=== PATIENT | male | born 1950 | race Caucasian/White ===

== ENCOUNTER → 2018-12-14 | Day surgery (SDC) | payer BC ==
--- NOTE | 2018-12-08 10:15 | Diagnostic Imaging Report ---
Chest, 2 views, 12/08/2018. History: Preop, gallbladder surgery. Comparison: None available. Findings: The cardiomediastinal silhouette and pulmonary vasculature are within normal limits. The lungs are clear without evidence of consolidation or pleural effusion. There are no acute osseous or soft tissue abnormalities. Impression: No acute cardiopulmonary abnormality. Signed by: Moiz Garrett on 12/08/2018 10:12 AM
[~2018-12-14] MED LIST: ALFUZOSIN HCL10 MG PO; ASPIR 8181 MG PO; AVODART0.5 MG PO; BUPIVACAINE HCL 0.5% INJ 30 ML VIAL INJ ONE; CEFAZOLIN SOD 1 GM/NS 50ML 100 ML IV ONE; CLOPIDOGREL75 MG PO; DEXAMETHASONE SOD PHOS INJ 4 MG/ML VIAL ONE; FENTANYL CITRATE/PF 100MCG/2 ML INJ ONE; GLYCOPYRROLATE INJ 1MG/ 5 ML SYR ONE; LIDOCAINE HCL 2% LOCAL INJ 5 ML SDV VIAL INJ ONE; MIDAZOLAM HCL 2 MG/2 ML VIAL ONE; MONTELUKAST SOD10 MG PO; NEOSTIGMINE 5 MG/5ML SYR ONE; ONDANSETRON HCL INJ 2MG/ML 2ML 2 MG/ML VIAL ONE; PROPOFOL IV EMULSION 10 MG/ML 20 ML VIAL ONE; ROCURONIUM BROMIDE 10 MG/ML 5ML VIAL ONE; SEVOFLURANE INHAL SOLN 250 ML PEN BTL ONE; SIMVASTATIN40 MG PO
--- OUTSIDE RECORDS SUMMARY | 2018-12-14 06:17 | XMS REPORT | Clinical Summary ---
Author Author [facility] Organization [facility] Address Unknown Phone Unavailable Care Team Providers Care Proof Clerk Name Role Phone Yaakov Langford MD PCP Allergies No Known Allergies Medications End Date Status Medication Sig Dispensed Refills Start Date Active dutasteride (AVODART) 0.5 Take 0.5 mg 1 mg capsule by mouth 6 daily. Active fluocinolone acetonide Administer 0 oil 0.01 % drops into ears as needed. Active olopatadine 0.6 % into each 0 spray,non-aerosol nostril as needed. Active alfuzosin (UROXATRAL) 10 Take 10 mg by 0 mg 24 hr tablet mouth daily. Active aspirin (ECOTRIN) 81 MG Take 81 mg by 0 enteric coated tablet mouth daily. Active clopidogrel (PLAVIX) 75 TAKE ONE 90 tablet 3 mg tablet TABLET BY 8 MOUTH ONCE DAILY Active simvastatin (ZOCOR) 40 MG TAKE ONE 90 tablet 3 tabletIndications: TABLET BY 8 Coronary artery disease MOUTH ONCE involving [place] heart DAILY AT with angina pectoris, BEDTIME unspecified vessel or lesion type (HCC) Active montelukast (SINGULAIR) 1 10 mg tablet 9 03/05/2018 Discontinued (Reorder) clopidogrel (PLAVIX) 75 Take 1 tablet 90 tablet 3 mg tablet (75 mg total) 7 by mouth daily. 03/05/2018 Discontinued (Reorder) simvastatin (ZOCOR) 40 MG TAKE ONE 90 tablet 3 tabletIndications: TABLET BY 7 Coronary artery disease MOUTH ONCE involving [place] heart DAILY AT with angina pectoris, BEDTIME unspecified vessel or lesion type (HCC) Active Problems Problem Noted Date Stented coronary artery 10/21/2016 Coronary artery disease involving [place] coronary artery of [place] heart 09/28/2016 without angina pectoris Overview: Added automatically from request for surgery [id number] Coronary arteriosclerosis 09/08/2016 Coronary artery disease involving [place] heart with angina pectoris 03/13/2016 Chest pain 03/13/2016 Hyperlipidemia 03/13/2016 Encounters Care Team Description Date Type Specialty Ino Patton MD Coronary artery disease involving [place] coronary artery of [place] heart without angina pectoris (Primary Dx); Stented coronary artery 07/19/2018 Office Visit Cardiology Ino Patton MD Med Refill 03/05/2018 Refill Cardiology after 12/13/2017 Family History Medical History Relation Name Comments Diabetes Father Heart disease Father Diabetes Mother Heart disease Sister Relation Name Status Comments Father Mother Sister Social History Date Tobacco Use Types Packs/Day Years Used Never Smoker Smokeless Tobacco: Never Used Drinks/Week oz/Week Comments Alcohol Use Yes Sex Assigned at Date Recorded Not on file Industry Job Start Date Occupation Not on file Not on file Not on file Travel End Travel History Travel Start No recent travel history available. Last Filed Vital Signs Reading Time Taken Comments Vital Sign 143/78 07/19/2018 9:15 AM CDT Blood Pressure 73 07/19/2018 9:15 AM CDT Pulse - - Temperature - - Respiratory Rate - - Oxygen Saturation - - Inhaled Oxygen Concentration 90.3 kg (199 lb) 07/19/2018 9:15 AM CDT Weight 177.8 cm (5' 10") 07/19/2018 9:15 AM CDT Height 28.55 07/19/2018 9:15 AM CDT Body Mass Index Plan of Treatment Care Team Description Date Type Specialty Ino Patton MD [address] [facility] [address] [place] [id number] 07/18/2019 Office Visit Cardiology Health Maintenance Due Date Last Done Comments COLONOSCOPY SCREENING 2002 SHINGLES VACCINES (#1) 2002 65+ PNEUMOCOCCAL VACCINE 2017 (1 of 2 - PCV13) INFLUENZA VACCINE 11/24/2018 Implants Device Identifier Shelf Expiration Date Model / Serial / Lot Implanted Type Area Manufactur er 07/24/2017 [id number] / / [id number] Device Vasclr Clsr Vasoactive Cardiovasc N/A: N/A Intstnl Peptd 6fr Angio-Seal - ular [id number] Implants Implanted: 10/08/2016 at [facility] (Quantity not on file) [id number] / / Stent Catheter Synergy (Otw) 3.00mm Coronary N/A: N/A BSC X 24mm - [id number] Stents INTERVENTI Implanted: 10/08/2016 at [facility] (Quantity not on file) CARDIOLOGY [id number] / / Stent Catheter Synergy (Otw) 3.50mm Coronary N/A: N/A BSC X 16mm - [id number] Stents INTERVENTI Implanted: 10/08/2016 at [facility] (Quantity not on file) CARDIOLOGY [id number] / / Stent Catheter Synergy (Otw) 2.50mm Coronary N/A: N/A BSC X 8mm - [id number] Stents INTERVENTI Implanted: 10/08/2016 at [facility] (Quantity not on file) CARDIOLOGY [id number] / / Stent Catheter Synergy (Otw) 2.50mm Coronary N/A: N/A BSC X 8mm - [id number] Stents INTERVENTI Implanted: 10/08/2016 at [facility] (Quantity not on file) CARDIOLOGY Procedures Comments Procedure Name Priority Date/Time Associated Diagnosis ECG 12-LEAD Routine 07/19/2018 Coronary artery disease 8:19 AM CDT involving [place] coronary artery of [place] heart without angina pectoris after 12/13/2017 Results * ECG 12 lead (07/19/2018 8:19 AM CDT) Ventricular 65 [facility] rate Atrial rate 65 [facility] ME interval 236 [facility] QRSD interval 96 [facility] QT interval 392 [facility] QTC interval 407 [facility] P axis 1 52 [facility] QRS axis 1 59 [facility] T wave axis 22 [facility] EKG impression Sinus rhythm with 1st degree [facility] MUSE AV block-Otherwise normal ECG-In automated comparison with ECG of 08-OCT-2016 14:04,-No significant change was found- Specimen Narrative Performed At Performing Organization Address City/State/Zipcode Phone Number [facility] MUSE [address] [place] [address] after 12/13/2017 Insurance Type Payer Benefit Subscriber ID Effective Phone Address Plan / Dates Group PPO BCBS BCBS xxxxxxxxxxxx 2013- CHOICE Present PPO/ROM MICHAEL PPO Advance Directives For more information, please contact: [phone] 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
--- OUTSIDE RECORDS SUMMARY | 2018-12-14 06:17 | XMS REPORT ---
Author Author [facility] Address Unknown Phone Unavailable Care Team Providers Care Sports Physician Name Role Phone SLICK RAMÍREZ Unavailable Unavailable Problems This patient has no known problems. Allergies, Adverse Reactions, Alerts This patient has no known allergies or adverse reactions. Medications This patient has no known medications. Results Test Description Test Time Test Comments Text Results Atomic Results Result Comments CHEST 2 VIEWS 2018-12-08 10:11:00 [place] [address] Patient Name: TARA FELTON MR #: [id number] : 1950 Age/Sex: 68/M Req #: [id number] [facility] Physician: Ordered by: SLICK RAMÍREZ MD Report #: [id number] Location: OR Room/Bed: Procedure: [id number] DX/CHEST 2 VIEWS Exam Date: 12/08/18 Exam Time: 0941 REPORT STATUS: Signed Chest, 2 views, 12/08/2018. History: Preop, gallbladder surgery. Comparison: None available. Findings: The cardiomediastinal silhouette and pulmonary vasculature are within normal limits. The lungs are clear without evidence of consolidation or pleural effusion. There are no acute osseous or soft tissue abnormalities. Impression: No acute cardiopulmonary abnormality. Signed by: Colin Garrett on 12/08/2018 10:12 AM Dictated By: COLIN GARRETT MD 1012 Transcribed By: KEELY on 12/08/18 1012 COPY TO: SLICK RAMÍREZ MD
--- OUTSIDE RECORDS SUMMARY | 2018-12-14 06:17 | XMS REPORT | Continuity of Care Document ---
Author Author [employer] Address Unknown Phone Unavailable Care Team Providers Care Territory Sales Consultant Name Role Phone [employer] Unavailable Unavailable Problems Problem Status Onset Date Classification Date Reported Comments Source Shortness of breath 02/25/2018 09/07/2018 [facility] [place] Atherosclerotic heart disease of [place] coronary artery without angina pectoris 09/07/2018 [facility] [place] Allergic disposition (disorder) Resolved Problem 09/07/2018 [facility] [place] Backache (finding) Resolved Problem 09/07/2018 [facility] [place] Benign prostatic hyperplasia (disorder) Resolved Problem 09/07/2018 [facility] [place] Cataract (disorder) Resolved Problem 09/07/2018 [facility] [place] Congenital anomaly of coronary artery (disorder) Resolved Problem 09/07/2018 [facility] [place] Deviated nasal septum (disorder) Resolved Problem 09/07/2018 [facility] [place] External hemorrhoids (disorder) Resolved Problem 09/07/2018 [facility] [place] Gout (disorder) Resolved Problem 09/07/2018 [facility] [place] Peripheral vascular disease (disorder) Resolved Problem 09/07/2018 [facility] [place] Raised prostate specific antigen (finding) Resolved Problem 09/07/2018 [facility] [place] Tinnitus (finding) Resolved Problem 09/07/2018 [facility] [place] Undescended testicle (disorder) Resolved Problem 09/07/2018 [facility] [place] Urinary tract infectious disease (disorder) Resolved Problem 09/07/2018 [facility] [place] Venous varices (disorder) Resolved Problem 09/07/2018 [facility] [place] Medications No Data Provided for This Section Allergies, Adverse Reactions, Alerts No Known Medication Allergies Immunizations No Data Provided for This Section Results No Data Provided for This Section Pathology Reports No Data Provided for This Section Diagnostic Reports No Data Provided for This Section Consultation Notes No Data Provided for This Section Discharge Summaries No Data Provided for This Section History and Physicals No Data Provided for This Section Vital Signs No Data Provided for This Section Encounters Location Location Details Encounter Type Encounter Number Reason For Visit Attending Provider ADM Date DC Date Status Source [facility] [place] [facility] Di[facility] Services [id number] Yaakov Chenn 02/18/2018 02/19/2018 [facility] [place] [facility] [id number] Nadeem Bruce 07/19/2018 [facility] Procedures Procedure Code Date Perfomer Comments Source Complex uroflowmetry [id number] 06/04/2016 [facility] [place] Assessment and Plan No Data Provided for This Section Plan of Care No Data Provided for This Section Social History Social History Date Source Social History TypeResponse Smoking Status Unknown if ever smoked; Previous treatment: None; Ready to change: No; Concerns about tobacco use in household: No; Exposure to Tobacco Smoke None; Cigarette Smoking Last 365 Days No; Reg Smoking Cessation Counseling No entered on: 07/19/18 07/19/2018 [facility] [place] Family History No Data Provided for This Section Advance Directives No Data Provided for This Section Functional Status No Data Provided for This Section
--- OUTSIDE RECORDS SUMMARY | 2018-12-14 06:17 | XMS REPORT | Summary of Care ---
Author Author [facility] [place] Organization [facility] [place] Address Unknown Phone Unavailable Encounter HQ Jmaesntr_andreea(FIN) [id number] Date(s): 02/18/18 - 02/18/18 [facility] [place] [address] [place] [id number] [phone] Encounter Diagnosis Shortness of breath (Final) - 02/24/18 Atherosclerotic heart disease of [place] coronary artery without angina pectoris (Final) - Discharge Disposition: Home or Self Care Attending Physician: Yaakov Langford MD Referring Physician: Yaakov Langford MD Vital Signs No data available for this section Problem List Condition Effective Dates Status Health Status Informant Allergy(Confirmed) Resolved Backache(Confirmed) Resolved Benign prostatic Resolved hyperplasia with lower urinary tract symptoms(Confirmed) Cataract(Confirmed) Resolved Coronary artery Resolved anomaly(Confirmed) Deviated nasal Resolved septum(Confirmed) Hemorrhoids, Resolved external(Confirmed) Gout(Confirmed) Resolved Peripheral vascular Resolved disease(Confirmed) Elevated prostate Resolved specific antigen [PSA](Confirmed) Tinnitus(Confirmed) Resolved Undescended Resolved testicle(Confirmed) UTI (urinary tract Resolved infection)(Confirmed ) Asymptomatic Resolved varicose veins(Confirmed) Allergies, Adverse Reactions, Alerts No data available for this section Medications No data available for this section Results No data available for this section Immunizations No data available for this section Procedures Procedure Date Related Diagnosis Body Site Status Complex uroflowmetry 06/04/16 Completed Social History Social History Type Response Smoking Status Unknown if ever smoked; Previous treatment: None; Ready to change: No; Concerns about tobacco use in household: No; Exposure to Tobacco Smoke None; Cigarette Smoking Last 365 Days No; Reg Smoking Cessation Counseling No entered on: 07/19/18 Assessment and Plan No data available for this section
--- NOTE | 2018-12-14 07:10 | NUR ---
SPIRITUAL CARE - Pre-Surgery Assessment: Pt in bed. Pt's friend at bedside. Pt reported supportive attention from family and friends. Intervention: I provided pastoral presence, hospitality, and sympathetic listening. I acquainted pt with availability of book or script editor while hospitalized. Outcome: Pt expressed appreciation for visit. No need for follow up indicated at this time. [facility] Spiritual Care Department O: [phone] Pager: [phone] ([phone] number calling from)
--- NOTE | 2018-12-14 09:58 | Operative Report ---
DATE OF PROCEDURE: 12/14/2018 SURGEON: Roberto Edwards MD PREOPERATIVE DIAGNOSIS: Chronic cholecystitis. POSTOPERATIVE DIAGNOSIS: Chronic cholecystitis. PROCEDURE: Diagnostic laparoscopy, laparoscopic cholecystectomy. VISE HAND: None. ANESTHESIA: General endotracheal. INDICATIONS AND FINDINGS: The patient is a 68-year-old male with recurrent episodes of right upper quadrant abdominal pain. Workup revealed abnormal HIDA scan, low ejection fraction. Surgery based on the gallbladder was distended with some changes of cholesterolosis. Cystic duct was about 2 mm in diameter. Common bile duct was about 5 mm in diameter. Liver, stomach, and lower abdomen all appeared normal. TECHNIQUE: After adequate general endotracheal anesthesia with the patient in supine position, the abdomen was prepped and draped in sterile fashion with ChloraPrep solution. Skin in the umbilicus was infiltrated with 0.5% Marcaine. Incision was made in the umbilicus, abdominal wall was elevated and Veress needle was introduced. Pneumoperitoneum was then created. A 10 mm trocar and cannula was then passed through the umbilical wound. Laparoscopic camera was introduced. Initial laparoscopy revealed the gallbladder to be distended. Liver, stomach, and lower abdomen appeared normal. A 10 mm trocar and cannula was placed in the epigastrium and two 5 mm trocars and cannulas were placed in the right upper quadrant; these were placed under direct vision. Fundus of the gallbladder was grasped, retracted superiorly. Neck of the gallbladder was grasped and retracted laterally. Peritoneum over the neck of the gallbladder was incised. The gallbladder cystic duct junction was dissected free. Cystic artery was also dissected free. The neck of the gallbladder completely dissected free. Cystic artery was divided between hemoclips close to the gallbladder. Cystic duct was also divided between hemoclips with three clips, being left on the common bile duct side. The gallbladder was then dissected free from the liver using scissors and electrocautery. Once it was entirely free, it was placed into an Endopouch and brought through the epigastric cannula. There were no stones palpable. Gallbladder bed was inspected for hemostasis, which was seen to be adequate; it was irrigated with saline. All fluid aspirated, inspected once again for hemostasis, which was seen to be adequate. Instruments and cannulas were then removed. Pneumoperitoneum was evacuated. Wounds were then closed. Fascia in the umbilical and epigastrium closed with 0 Vicryl. Skin to all wounds closed with 4-0 Vicryl in subcuticular fashion. Dermabond and sterile dressing were applied to each wound. The patient tolerated the procedure well. Estimated blood loss was 5 mL. There were no complications. All counts were correct. The patient was taken to the recovery room in satisfactory condition. MD BRANDY Osborne/MIKE /[id number]
[2018-12-14 10:10] VITALS: BP 129/76
== END | disposition home or self-care (01) ==
LOC: OR 06:14
PROVIDERS: ATTEND Surgery
DX: K81.1 Chronic cholecystitis (principal); Z01.810 Encounter for preprocedural cardiovascular examination; Z01.811 Encounter for preprocedural respiratory examination; K21.9 Gastro-esophageal reflux disease without esophagitis; I25.10 Atherosclerotic heart disease of native coronary artery without angina pectoris; I25.2 Old myocardial infarction; Z84.89 Family history of other specified conditions; Z83.3 Family history of diabetes mellitus
CPT/HCPCS: 47562; 71046; 88304; 93005; J0690; J1100; J2001; J2250; J2405; J2704; J3010; J3490

== ENCOUNTER 2024-01-10 10:08 | Inpatient (IN) | payer MEDICARE ==
[2024-01-07 08:52] LABS: BASOPHILS % 0.3 % (0.0-1.0); EOSINOPHILS # (AUTO) 0.2 (0.0-0.4); EOSINOPHILS % 1.9 % (0.0-6.0); HEMATOCRIT 46.8 % (38.2-49.6); HEMOGLOBIN 14.8 g/dL (14.0-18.0); LYMPHOCYTES # (AUTO) 2.1 (1.0-3.2); MEAN CORPUSCULAR HEMOGLOBIN 29.2 pg (28-32); MEAN CORPUSCULAR HGB CONC 31.6 g/dL (31-35); MEAN CORPUSCULAR VOLUME 92.5 fL (81-99); MONOCYTES # (AUTO) 0.5 (0.2-0.8); MONOCYTES % 6.9 % (4.4-11.3); NEUTROPHILS # (AUTO) 4.9 (2.1-6.9); NEUTROPHILS % 63.6 % (38.7-80.0); PLATELET COUNT 214 x10e3/uL (140-360); RED BLOOD COUNT 5.06 x10e6/uL (4.3-5.7); RED CELL DISTRIBUTION WIDTH 13.4 % (11.7-14.4); WHITE BLOOD COUNT 7.71 x10e3/uL (4.8-10.8)
[2024-01-07 09:18] LABS: ALBUMIN 4.3 g/dL (3.5-5.0); ALBUMIN/GLOBULIN RATIO 1.3 (0.8-2.0); ANION GAP 13.2 mmol/L (8-16); BILIRUBIN,TOTAL 0.7 mg/dL (0.2-1.2); CALCIUM 9.7 mg/dL (8.4-10.2); CREATININE, SERUM 1.57 mg/dL (0.72-1.25); POTASSIUM 4.2 mmol/L (3.5-5.1); TOTAL PROTEIN 7.5 g/dL (6.5-8.1)
[~2024-01-10] VITALS: Ht 180.3 cm; Wt 92.5 kg
[2024-01-10] VITALS (21 sets, daily range): BP systolic 82–146; BP diastolic 47–98; PULSE 104–114; RESP 13–22; TEMP 94–98.3; O2SAT 88–100
[~2024-01-10 10:08] MED LIST changes: -BUPIVACAINE HCL 0.5% INJ 30 ML VIAL INJ ONE; -CEFAZOLIN SOD 1 GM/NS 50ML 100 ML IV ONE; -DEXAMETHASONE SOD PHOS INJ 4 MG/ML VIAL ONE; +ELDERBERRY350 MG; -FENTANYL CITRATE/PF 100MCG/2 ML INJ ONE; +FLONASE ALLERG9.9 ML INH; -GLYCOPYRROLATE INJ 1MG/ 5 ML SYR ONE; -LIDOCAINE HCL 2% LOCAL INJ 5 ML SDV VIAL INJ ONE; -MIDAZOLAM HCL 2 MG/2 ML VIAL ONE; +MULTI-VITAMIN1 EACH PO; -NEOSTIGMINE 5 MG/5ML SYR ONE; -ONDANSETRON HCL INJ 2MG/ML 2ML 2 MG/ML VIAL ONE; -PROPOFOL IV EMULSION 10 MG/ML 20 ML VIAL ONE; +PROTONIX20 MG PO; -ROCURONIUM BROMIDE 10 MG/ML 5ML VIAL ONE; -SEVOFLURANE INHAL SOLN 250 ML PEN BTL ONE; +VITAMIN C1000 MG PO; +VITAMIN D31250 MCG
[2024-01-10] MEDS: CEFAZOLIN SODIUM 2 GM ONE (12:13)
[2024-01-10] MEDS: LACTATED RINGER'S 1,000 ML ONE (12:14)
[2024-01-10] MEDS ORDERED: MANNITOL 25% 12.5GM/50ML 0 ML ONE (12:51)
[2024-01-10] MEDS ORDERED: SUGAMMADEX SODIUM 200 MG/2 ML VIAL IV ONE ×2 (12:58→17:47)
[2024-01-10] MEDS ORDERED: EPINEPHRINE HCL 1:1000 1ML 1 MG/ML AMP ONE (13:05)
[2024-01-10] MEDS ORDERED: MORPHINE SULFATE/PF 1 MG/1 ML 10ML VIAL ONE (13:05)
[2024-01-10] MEDS ORDERED: MANNITOL 25% 12.5GM/50ML 50 ML ONE (13:49)
[2024-01-10] MEDS ORDERED: ROCURONIUM BROMIDE 10 MG/ML 5ML VIAL IV ONE ×2 (16:34→17:47)
[2024-01-10] MEDS ORDERED: ONDANSETRON HCL INJ 2MG/ML 2ML 2 MG/ML VIAL ONE ×2 (16:34→17:47)
[2024-01-10] MEDS ORDERED: LIDOCAINE HCL 2% LOCAL INJ 5 ML SDV VIAL INJ ONE ×2 (16:34→17:47)
[2024-01-10] MEDS ORDERED: PROPOFOL IV EMULSION 10 MG/ML 20 ML VIAL ONE ×2 (16:34→17:47)
[2024-01-10] MEDS ORDERED: EPHEDRINE SULFATE INJ 50 MG/ML VIAL ONE ×2 (16:34→17:47)
[2024-01-10] MEDS ORDERED: MANNITOL 25% 12.5GM/50 ML VIAL ONE (16:34)
[2024-01-10] MEDS ORDERED: ACETAMINOPHEN 1000 MG/100 ML IV ONE ×2 (16:34→17:47)
[2024-01-10] MEDS ORDERED: DEXAMETHASONE SOD PHOS INJ 4 MG/ML SDV ONE ×2 (16:34→17:47)
[2024-01-10] MEDS ORDERED: SUCCINYLCHOLINE CHLORIDE 20 MG/ML 10ML VIAL ONE ×2 (16:34→17:47)
[2024-01-10] MEDS ORDERED: NALOXONE HCL INJ 0.4 MG/ML AMP IV PRN (16:45)
[2024-01-10] MEDS: SODIUM CHLORIDE 0.9% 250ML IRRIG IR SCH (16:45)
[2024-01-10] MEDS ORDERED: ONDANSETRON HCL INJ 2MG/ML 2ML 2 MG/ML VIAL IV PRN (16:45)
[2024-01-10] MEDS ORDERED: MORPHINE SULFATE 1 MG/ML 30ML PCA IV PRN (16:45)
[2024-01-10] MEDS ORDERED: DIPHENHYDRAMINE HCL INJ 50 MG/ML VIAL IM PRN (16:45)
[2024-01-10] MEDS ORDERED: MIDAZOLAM HCL 2 MG/2 ML VIAL ONE (17:05)
[2024-01-10] MEDS ORDERED: FENTANYL CITRATE/PF 100MCG/2 ML INJ ONE (17:05)
[2024-01-10 17:41] LABS: ANION GAP 13.3 mmol/L (8-16); CALCIUM 8.2 mg/dL (8.4-10.2); CREATININE, SERUM 1.47 mg/dL (0.72-1.25); POTASSIUM 4.3 mmol/L (3.5-5.1)
[2024-01-10 17:43] LABS: HEMATOCRIT 38.8 % (38.2-49.6); MEAN CORPUSCULAR HEMOGLOBIN 29.1 pg (28-32); MEAN CORPUSCULAR HGB CONC 30.9 g/dL (31-35); MEAN CORPUSCULAR VOLUME 94.2 fL (81-99); NEUTROPHILS % 86.2 % (38.7-80.0); PLATELET COUNT 169 x10e3/uL (140-360); RED BLOOD COUNT 4.12 x10e6/uL (4.3-5.7); RED CELL DISTRIBUTION WIDTH 13.2 % (11.7-14.4); WHITE BLOOD COUNT 9.98 x10e3/uL (4.8-10.8)
[2024-01-10 17:44] LABS: BASOPHILS % 0.2 % (0.0-1.0); EOSINOPHILS % 0.3 % (0.0-6.0); LYMPHOCYTES # (AUTO) 1.2 (1.0-3.2); LYMPHOCYTES % 11.7 % (18.0-39.1); MONOCYTES # (AUTO) 0.1 (0.2-0.8); MONOCYTES % 1.3 % (4.4-11.3); NEUTROPHILS # (AUTO) 8.6 (2.1-6.9)
[2024-01-10] MEDS ORDERED: PHENYLEPHRINE HCL 1% 10 MG/ML VIAL ONE (17:47)
[2024-01-10] MEDS ORDERED: SEVOFLURANE INHAL SOLN 250 ML PEN BTL ONE (17:47)
[2024-01-10] MEDS ORDERED: KETAMINE 50MG/5ML SYR ONE (18:11)
[2024-01-10 18:16] LABS: BASOPHILS % 0.2 % (0.0-1.0); EOSINOPHILS % 0.1 % (0.0-6.0); HEMATOCRIT 28.8 % (38.2-49.6); LYMPHOCYTES # (AUTO) 2.3 (1.0-3.2); LYMPHOCYTES % 11.1 % (18.0-39.1); MEAN CORPUSCULAR HEMOGLOBIN 29.4 pg (28-32); MEAN CORPUSCULAR HGB CONC 31.3 g/dL (31-35); MEAN CORPUSCULAR VOLUME 94.1 fL (81-99); MONOCYTES # (AUTO) 0.5 (0.2-0.8); MONOCYTES % 2.2 % (4.4-11.3); NEUTROPHILS # (AUTO) 17.7 (2.1-6.9); NEUTROPHILS % 85.8 % (38.7-80.0); PLATELET COUNT 195 x10e3/uL (140-360); RED BLOOD COUNT 3.06 x10e6/uL (4.3-5.7); RED CELL DISTRIBUTION WIDTH 13.2 % (11.7-14.4); WHITE BLOOD COUNT 20.59 x10e3/uL (4.8-10.8)
[2024-01-10] MEDS: HETASTARCH 6%/NACL INJ 500 ML IV ONE (19:26)
[2024-01-10] MEDS: HETASTARCH 6%/NACL INJ 500 ML ONE (19:26)
[2024-01-10] MEDS: MUPIROCIN 2% OINT 22 GM TUBE TOP SCH (19:56)
[2024-01-10] MEDS: D5.45%NS/KCL 20MEQ 1,000 ML IV SCH (19:58)
[2024-01-10] MEDS: SODIUM CHLORIDE 0.9% 250ML 250 ML IV ONE ×2 (20:14)
[2024-01-10 20:18] LABS: BASOPHILS % 0.1 % (0.0-1.0); EOSINOPHILS % 0.1 % (0.0-6.0); HEMATOCRIT 29.1 % (38.2-49.6); HEMOGLOBIN 9.2 g/dL (14.0-18.0); LYMPHOCYTES % 5.7 % (18.0-39.1); MEAN CORPUSCULAR HEMOGLOBIN 29.8 pg (28-32); MEAN CORPUSCULAR HGB CONC 31.6 g/dL (31-35); MEAN CORPUSCULAR VOLUME 94.2 fL (81-99); MONOCYTES # (AUTO) 0.7 (0.2-0.8); MONOCYTES % 3.7 % (4.4-11.3); NEUTROPHILS # (AUTO) 15.9 (2.1-6.9); NEUTROPHILS % 89.9 % (38.7-80.0); PLATELET COUNT 144 x10e3/uL (140-360); RED BLOOD COUNT 3.09 x10e6/uL (4.3-5.7); RED CELL DISTRIBUTION WIDTH 13.4 % (11.7-14.4); WHITE BLOOD COUNT 17.65 x10e3/uL (4.8-10.8)
[2024-01-11] VITALS (56 sets, daily range): BP systolic 96–147; BP diastolic 52–98; PULSE 92–110; RESP 11–24; TEMP 96.7–98.5; O2SAT 91–100
[2024-01-11] MEDS ORDERED: EYE LUBRICANT OPTH OINT 3.5GM TUBE OP PRN (00:15)
[2024-01-11 02:20] LABS: BASOPHILS % 0.1 % (0.0-1.0); HEMATOCRIT 29.3 % (38.2-49.6); HEMOGLOBIN 9.4 g/dL (14.0-18.0); LYMPHOCYTES # (AUTO) 0.5 (1.0-3.2); MEAN CORPUSCULAR HEMOGLOBIN 29.7 pg (28-32); MEAN CORPUSCULAR HGB CONC 32.1 g/dL (31-35); MEAN CORPUSCULAR VOLUME 92.4 fL (81-99); MONOCYTES # (AUTO) 1.1 (0.2-0.8); MONOCYTES % 8.7 % (4.4-11.3); NEUTROPHILS # (AUTO) 10.6 (2.1-6.9); PLATELET COUNT 136 x10e3/uL (140-360); RED BLOOD COUNT 3.17 x10e6/uL (4.3-5.7); RED CELL DISTRIBUTION WIDTH 13.9 % (11.7-14.4); WHITE BLOOD COUNT 12.22 x10e3/uL (4.8-10.8)
[2024-01-11 06:45] LABS: ALBUMIN 2.4 g/dL (3.5-5.0); ALBUMIN/GLOBULIN RATIO 1.4 (0.8-2.0); ANION GAP 9.7 mmol/L (8-16); BILIRUBIN,TOTAL 0.4 mg/dL (0.2-1.2); CALCIUM 7.2 mg/dL (8.4-10.2); CREATININE, SERUM 1.5 mg/dL (0.72-1.25); POTASSIUM 4.7 mmol/L (3.5-5.1); TOTAL PROTEIN 4.1 g/dL (6.5-8.1)
[2024-01-11 06:48] LABS: HEMATOCRIT 27.8 % (38.2-49.6); HEMOGLOBIN 8.9 g/dL (14.0-18.0); LYMPHOCYTES # (AUTO) 0.9 (1.0-3.2); LYMPHOCYTES % 9.8 % (18.0-39.1); MEAN CORPUSCULAR HEMOGLOBIN 29.6 pg (28-32); MEAN CORPUSCULAR VOLUME 92.4 fL (81-99); MONOCYTES % 10.9 % (4.4-11.3); NEUTROPHILS # (AUTO) 7.2 (2.1-6.9); NEUTROPHILS % 79.1 % (38.7-80.0); PLATELET COUNT 145 x10e3/uL (140-360); RED BLOOD COUNT 3.01 x10e6/uL (4.3-5.7); RED CELL DISTRIBUTION WIDTH 14.1 % (11.7-14.4); WHITE BLOOD COUNT 9.15 x10e3/uL (4.8-10.8)
[2024-01-11] MEDS: Morphine 4mg INJECTION 4 MG/ML INJ IV PRN (11:36)
[2024-01-11] MEDS: ONDANSETRON HCL INJ 2MG/ML 2ML 2 MG/ML VIAL IV PRN (11:37)
[2024-01-11] MEDS: DEXTROSE 5%/0.9% SOD CHL 1,000 ML IV SCH (11:43)
[2024-01-11] MEDS: ACETAMINOPHEN 1000 MG/100 ML IV PRN (13:34)
[2024-01-11] MEDS: SODIUM CHLORIDE 0.9% 250ML 250 ML IV ONE ×2 (18:51→20:12)
[2024-01-11 19:25] LABS: BASOPHILS % 0.2 % (0.0-1.0); EOSINOPHILS % 0.5 % (0.0-6.0); HEMATOCRIT 22.1 % (38.2-49.6); HEMOGLOBIN 7.2 g/dL (14.0-18.0); LYMPHOCYTES # (AUTO) 1.4 (1.0-3.2); LYMPHOCYTES % 22.3 % (18.0-39.1); MEAN CORPUSCULAR HGB CONC 32.6 g/dL (31-35); MEAN CORPUSCULAR VOLUME 92.1 fL (81-99); MONOCYTES # (AUTO) 0.7 (0.2-0.8); MONOCYTES % 11.4 % (4.4-11.3); NEUTROPHILS # (AUTO) 4.1 (2.1-6.9); NEUTROPHILS % 65.4 % (38.7-80.0); PLATELET COUNT 112 x10e3/uL (140-360); RED CELL DISTRIBUTION WIDTH 14.1 % (11.7-14.4); WHITE BLOOD COUNT 6.24 x10e3/uL (4.8-10.8)
[2024-01-11 19:48] LABS: ALBUMIN 2.6 g/dL (3.5-5.0); ALBUMIN/GLOBULIN RATIO 1.4 (0.8-2.0); ANION GAP 7.9 mmol/L (8-16); BILIRUBIN,TOTAL 0.6 mg/dL (0.2-1.2); CALCIUM 7.7 mg/dL (8.4-10.2); CREATININE, SERUM 1.39 mg/dL (0.72-1.25); POTASSIUM 3.9 mmol/L (3.5-5.1); TOTAL PROTEIN 4.4 g/dL (6.5-8.1)
[2024-01-11] MEDS: ACETAMINOPHEN 325 MG TAB PO STA (22:37)
[2024-01-11] MEDS: SODIUM CHLORIDE 0.9% 250ML 250 ML ONE (22:38)
[2024-01-12] VITALS (56 sets, daily range): BP systolic 105–172; BP diastolic 42–88; PULSE 82–103; RESP 11–26; TEMP 97.8–98; O2SAT 87–100
[2024-01-12 07:11] LABS: BASOPHILS % 0.3 % (0.0-1.0); EOSINOPHILS # (AUTO) 0.1 (0.0-0.4); EOSINOPHILS % 1.6 % (0.0-6.0); HEMATOCRIT 26.1 % (38.2-49.6); HEMOGLOBIN 8.5 g/dL (14.0-18.0); LYMPHOCYTES # (AUTO) 0.8 (1.0-3.2); LYMPHOCYTES % 11.5 % (18.0-39.1); MEAN CORPUSCULAR HEMOGLOBIN 30.1 pg (28-32); MEAN CORPUSCULAR HGB CONC 32.6 g/dL (31-35); MEAN CORPUSCULAR VOLUME 92.6 fL (81-99); MONOCYTES # (AUTO) 0.7 (0.2-0.8); MONOCYTES % 9.6 % (4.4-11.3); NEUTROPHILS # (AUTO) 5.3 (2.1-6.9); NEUTROPHILS % 76.6 % (38.7-80.0); PLATELET COUNT 127 x10e3/uL (140-360); RED BLOOD COUNT 2.82 x10e6/uL (4.3-5.7); RED CELL DISTRIBUTION WIDTH 14.4 % (11.7-14.4); WHITE BLOOD COUNT 6.86 x10e3/uL (4.8-10.8)
[2024-01-12 07:33] LABS: ANION GAP 8.8 mmol/L (8-16); CALCIUM 7.6 mg/dL (8.4-10.2); CREATININE, SERUM 1.35 mg/dL (0.72-1.25); POTASSIUM 3.8 mmol/L (3.5-5.1)
[2024-01-12] MEDS: ACETAMINOPHEN 1000 MG/100 ML IV PRN ×2 (10:34→15:51)
[2024-01-12] MEDS: SENNA-S TABLET PO SCH (16:07)
[2024-01-12 17:24] LABS: BASOPHILS % 0.1 % (0.0-1.0); EOSINOPHILS # (AUTO) 0.1 (0.0-0.4); HEMOGLOBIN 8.3 g/dL (14.0-18.0); LYMPHOCYTES % 14.9 % (18.0-39.1); MEAN CORPUSCULAR HEMOGLOBIN 29.5 pg (28-32); MEAN CORPUSCULAR HGB CONC 31.9 g/dL (31-35); MEAN CORPUSCULAR VOLUME 92.5 fL (81-99); MONOCYTES # (AUTO) 0.7 (0.2-0.8); MONOCYTES % 9.6 % (4.4-11.3); NEUTROPHILS # (AUTO) 5.1 (2.1-6.9); NEUTROPHILS % 73.1 % (38.7-80.0); PLATELET COUNT 120 x10e3/uL (140-360); RED BLOOD COUNT 2.81 x10e6/uL (4.3-5.7); RED CELL DISTRIBUTION WIDTH 14.4 % (11.7-14.4); WHITE BLOOD COUNT 6.99 x10e3/uL (4.8-10.8)
[2024-01-13] VITALS (46 sets, daily range): BP systolic 92–156; BP diastolic 45–121; PULSE 73–101; RESP 12–24; TEMP 97.7–98; O2SAT 91–100
[2024-01-13 06:56] LABS: EOSINOPHILS # (AUTO) 0.2 (0.0-0.4); EOSINOPHILS % 2.1 % (0.0-6.0); HEMATOCRIT 27.1 % (38.2-49.6); HEMOGLOBIN 8.7 g/dL (14.0-18.0); LYMPHOCYTES % 14.3 % (18.0-39.1); MEAN CORPUSCULAR HEMOGLOBIN 30.1 pg (28-32); MEAN CORPUSCULAR HGB CONC 32.1 g/dL (31-35); MEAN CORPUSCULAR VOLUME 93.8 fL (81-99); MONOCYTES # (AUTO) 0.5 (0.2-0.8); MONOCYTES % 7.7 % (4.4-11.3); NEUTROPHILS # (AUTO) 5.3 (2.1-6.9); NEUTROPHILS % 75.5 % (38.7-80.0); PLATELET COUNT 135 x10e3/uL (140-360); RED BLOOD COUNT 2.89 x10e6/uL (4.3-5.7); RED CELL DISTRIBUTION WIDTH 13.9 % (11.7-14.4); WHITE BLOOD COUNT 6.98 x10e3/uL (4.8-10.8)
[2024-01-13 07:20] LABS: ANION GAP 9.1 mmol/L (8-16); CALCIUM 7.5 mg/dL (8.4-10.2); CREATININE, SERUM 1.27 mg/dL (0.72-1.25); POTASSIUM 4.1 mmol/L (3.5-5.1)
[2024-01-13] MEDS: SODIUM CHLORIDE 0.9% 250ML 250 ML IV ONE (09:14)
[2024-01-13] MEDS: IRON SUCROSE 100 MG in SODIUM CHLORIDE 0.9% 100 ML IV SCH (09:14)
[2024-01-13] MEDS: BISACODYL 10 MG SUPP PR ONE ×2 (09:15→09:18)
[2024-01-13] MEDS: ACETAMINOPHEN/CODEINE 300MG - 30MG TAB PO PRN (12:01)
[2024-01-13] MEDS: FUROSEMIDE INJ 10 MG/ML 2 ML VIAL IV PRN (21:27)
[2024-01-14] VITALS (11 sets, daily range): BP systolic 129–162; BP diastolic 63–85; PULSE 73–99; RESP 17–20; TEMP 97.6–99.3; O2SAT 96–100
[2024-01-14 05:35] LABS: BASOPHILS % 0.1 % (0.0-1.0); EOSINOPHILS # (AUTO) 0.2 (0.0-0.4); EOSINOPHILS % 2.7 % (0.0-6.0); HEMOGLOBIN 10.9 g/dL (14.0-18.0); LYMPHOCYTES # (AUTO) 0.9 (1.0-3.2); LYMPHOCYTES % 12.9 % (18.0-39.1); MEAN CORPUSCULAR HEMOGLOBIN 29.5 pg (28-32); MEAN CORPUSCULAR HGB CONC 32.1 g/dL (31-35); MEAN CORPUSCULAR VOLUME 92.1 fL (81-99); MONOCYTES # (AUTO) 0.7 (0.2-0.8); MONOCYTES % 10.1 % (4.4-11.3); NEUTROPHILS % 73.9 % (38.7-80.0); PLATELET COUNT 151 x10e3/uL (140-360); RED BLOOD COUNT 3.69 x10e6/uL (4.3-5.7); RED CELL DISTRIBUTION WIDTH 14.1 % (11.7-14.4); WHITE BLOOD COUNT 6.75 x10e3/uL (4.8-10.8)
[2024-01-14 05:51] LABS: ANION GAP 11.5 mmol/L (8-16); CALCIUM 8.3 mg/dL (8.4-10.2); CREATININE, SERUM 1.43 mg/dL (0.72-1.25); POTASSIUM 3.5 mmol/L (3.5-5.1)
[2024-01-14 17:04] LABS: CLARITY,URINE CLEAR (CLEAR); COLOR,URINE YELLOW (YELLOW); LEUKOCYTE ESTERASE ,URINE NEGATIVE (NEGATIVE); NITRITE,URINE NEGATIVE (NEGATIVE); PH,URINE 7 (5 - 7)
[2024-01-14 17:05] LABS: BACTERIA,URINE RARE /HPF; BILIRUBIN,URINE NEGATIVE (NEGATIVE); GLUCOSE, URINE NEGATIVE (NEGATIVE); KETONES,URINE NEGATIVE (NEGATIVE); PROTEIN,URINE DIPSTICK 1+ (NEGATIVE); URINE UROBILINOGEN 0.2 mg/dL (0.2 - 1); WBC,URINE (MAN) 0-5 /HPF (0-5)
[2024-01-14] MEDS: ACETAMINOPHEN 1000 MG/100 ML IV PRN (23:21)
[2024-01-15] VITALS (10 sets, daily range): BP systolic 132–158; BP diastolic 63–96; PULSE 71–82; RESP 14–20; TEMP 97.7–98.7; O2SAT 96–99
[2024-01-15 06:53] LABS: BASOPHILS % 0.3 % (0.0-1.0); EOSINOPHILS # (AUTO) 0.3 (0.0-0.4); EOSINOPHILS % 4.9 % (0.0-6.0); HEMATOCRIT 34.3 % (38.2-49.6); LYMPHOCYTES # (AUTO) 1.4 (1.0-3.2); LYMPHOCYTES % 21.8 % (18.0-39.1); MEAN CORPUSCULAR HEMOGLOBIN 29.6 pg (28-32); MEAN CORPUSCULAR HGB CONC 32.1 g/dL (31-35); MEAN CORPUSCULAR VOLUME 92.2 fL (81-99); MONOCYTES # (AUTO) 0.8 (0.2-0.8); MONOCYTES % 11.8 % (4.4-11.3); NEUTROPHILS # (AUTO) 3.9 (2.1-6.9); NEUTROPHILS % 60.9 % (38.7-80.0); PLATELET COUNT 166 x10e3/uL (140-360); RED BLOOD COUNT 3.72 x10e6/uL (4.3-5.7); WHITE BLOOD COUNT 6.33 x10e3/uL (4.8-10.8)
[2024-01-15 07:06] LABS: ANION GAP 9.8 mmol/L (8-16); CALCIUM 8.4 mg/dL (8.4-10.2); CREATININE, SERUM 1.26 mg/dL (0.72-1.25); POTASSIUM 3.8 mmol/L (3.5-5.1)
[2024-01-15] MEDS: BISACODYL 10 MG SUPP PR PRN (16:38)
[2024-01-16] VITALS (10 sets, daily range): BP systolic 136–168; BP diastolic 75–95; PULSE 65–80; RESP 17–18; TEMP 97.8–99.4; O2SAT 96–100
[2024-01-16] MEDS ORDERED: BISACODYL 10 MG SUPP PR PRN (09:30)
[2024-01-16] MEDS ORDERED: ACETAMINOPHEN 325 MG TAB PO PRN (09:30)
[2024-01-16] MEDS: POLYETHYLENE GLYCOL 3350 17 GM PACK PO SCH (09:55)
[2024-01-16] MEDS: BISACODYL 10 MG SUPP PR ONE (09:55)
[2024-01-16] MEDS: Morphine 4mg INJECTION 4 MG/ML INJ IV PRN (09:56)
[2024-01-17] VITALS (9 sets, daily range): BP systolic 105–168; BP diastolic 70–88; PULSE 69–79; RESP 16–18; TEMP 98.2–99.1; O2SAT 95–100
[2024-01-17 05:28] LABS: BASOPHILS % 0.1 % (0.0-1.0); EOSINOPHILS # (AUTO) 0.3 (0.0-0.4); EOSINOPHILS % 3.5 % (0.0-6.0); HEMATOCRIT 36.2 % (38.2-49.6); HEMOGLOBIN 11.3 g/dL (14.0-18.0); LYMPHOCYTES # (AUTO) 1.3 (1.0-3.2); LYMPHOCYTES % 16.4 % (18.0-39.1); MEAN CORPUSCULAR HEMOGLOBIN 29.4 pg (28-32); MEAN CORPUSCULAR HGB CONC 31.2 g/dL (31-35); MEAN CORPUSCULAR VOLUME 94.3 fL (81-99); MONOCYTES # (AUTO) 0.8 (0.2-0.8); MONOCYTES % 9.5 % (4.4-11.3); NEUTROPHILS # (AUTO) 5.7 (2.1-6.9); PLATELET COUNT 190 x10e3/uL (140-360); RED BLOOD COUNT 3.84 x10e6/uL (4.3-5.7); RED CELL DISTRIBUTION WIDTH 13.8 % (11.7-14.4); WHITE BLOOD COUNT 8.09 x10e3/uL (4.8-10.8)
[2024-01-17 06:05] LABS: ANION GAP 10.8 mmol/L (8-16); CALCIUM 8.7 mg/dL (8.4-10.2); CREATININE, SERUM 1.15 mg/dL (0.72-1.25); POTASSIUM 3.8 mmol/L (3.5-5.1)
[2024-01-17] MEDS ORDERED: HYDRALAZINE HCL 25 MG TAB PO PRN (07:30)
[2024-01-17] MEDS: AMLODIPINE BESYLATE 10 MG TAB PO SCH (08:10)
[2024-01-17] MEDS: DUTASTERIDE 0.5 MG CAP PO SCH (08:12)
[2024-01-17] MEDS ORDERED: SIMVASTATIN 20 MG TAB PO SCH (21:00)
[2024-01-17] MEDS ORDERED: SIMVASTATIN 40 MG TAB PO SCH (21:00)
[2024-01-17] MEDS ORDERED: MONTELUKAST SODIUM 10 MG TAB PO SCH (21:00)
== END 2024-01-17 17:44 | disposition home or self-care (01) | DRG 657 ==
LOC: OR 10:08 → PACU V 14:45 → ICU 18:54 → IMCU 01-13 20:47 → ERHOLD 01-14 16:32 → IMCU 01-14 16:32
PROVIDERS: ADMIT Internal Medicine; ATTEND Internal Medicine
PROC: 30233N1 Transfusion of Nonautologous Red Blood Cells into Peripheral Vein, Percutaneous Approach (ICD-10-PCS; 2024-01-10)
PROC: 0TB10ZZ Excision of Left Kidney, Open Approach (ICD-10-PCS; principal; 2024-01-10 13:04)
PROC: 30233K1 Transfusion of Nonautologous Frozen Plasma into Peripheral Vein, Percutaneous Approach (ICD-10-PCS; 2024-01-11)
PROC: 30233R1 Transfusion of Nonautologous Platelets into Peripheral Vein, Percutaneous Approach (ICD-10-PCS; 2024-01-11)
DX: C64.2 Malignant neoplasm of left kidney, except renal pelvis (principal); D62 Acute posthemorrhagic anemia; E87.1 Hypo-osmolality and hyponatremia; I95.81 Postprocedural hypotension; E27.8 Other specified disorders of adrenal gland; E83.51 Hypocalcemia; E11.22 Type 2 diabetes mellitus with diabetic chronic kidney disease; I12.9 Hypertensive chronic kidney disease with stage 1 through stage 4 chronic kidney disease, or unspecified chronic kidney disease; N18.30 Chronic kidney disease, stage 3 unspecified; I25.10 Atherosclerotic heart disease of native coronary artery without angina pectoris; I25.2 Old myocardial infarction; Z95.5 Presence of coronary angioplasty implant and graft; E78.5 Hyperlipidemia, unspecified; R31.9 Hematuria, unspecified; K21.9 Gastro-esophageal reflux disease without esophagitis; N40.0 Benign prostatic hyperplasia without lower urinary tract symptoms; E66.9 Obesity, unspecified; Z68.28 Body mass index [BMI] 28.0-28.9, adult; Z90.49 Acquired absence of other specified parts of digestive tract; Z79.82 Long term (current) use of aspirin; Z79.02 Long term (current) use of antithrombotics/antiplatelets
CPT/HCPCS: 36415; 71045; 80048; 80053; 81001; 83735; 85025; 86850; 86900; 86920; 87086; 88304; 88305; 88307; 88311; 88329; 93005; 94799; 99252; J0171; J0330; J0690; J1100; J1756; J1940; J2001; J2150; J2250; J2270; J2371; J2405; J2470; J7042; J7050; P9016; P9017; P9034

== ENCOUNTER → 2024-03-28 | Outpatient (REF) | payer MEDICARE | LOC: US 13:48 | PROVIDERS: ATTEND Urology | DX: C64.2 Malignant neoplasm of left kidney, except renal pelvis (principal); N18.9 Chronic kidney disease, unspecified | CPT/HCPCS: 71046; 76770; 76857 ==

== ENCOUNTER → 2024-06-15 | Outpatient (REF) | payer MEDICARE | LOC: US 11:29 | PROVIDERS: ATTEND Urology | DX: N50.0 Atrophy of testis (principal) | CPT/HCPCS: 76870; 93976 ==

== ENCOUNTER 2024-08-02 06:02 | Inpatient (IN) | payer MEDICARE ==
[~2024-08-02] VITALS: Ht 177.8 cm; Wt 88.9 kg
[2024-08-02 06:40] LABS: BASOPHILS % 0.3 % (0.0-1.0); EOSINOPHILS # (AUTO) 0.2 (0.0-0.4); EOSINOPHILS % 3.3 % (0.0-6.0); HEMATOCRIT 39.8 % (38.2-49.6); LYMPHOCYTES # (AUTO) 1.8 (1.0-3.2); LYMPHOCYTES % 26.1 % (18.0-39.1); MEAN CORPUSCULAR HEMOGLOBIN 30.1 pg (28-32); MEAN CORPUSCULAR HGB CONC 32.7 g/dL (31-35); MEAN CORPUSCULAR VOLUME 92.1 fL (81-99); MONOCYTES # (AUTO) 0.6 (0.2-0.8); MONOCYTES % 9.2 % (4.4-11.3); NEUTROPHILS # (AUTO) 4.2 (2.1-6.9); NEUTROPHILS % 60.7 % (38.7-80.0); PLATELET COUNT 162 x10e3/uL (140-360); RED BLOOD COUNT 4.32 x10e6/uL (4.3-5.7); RED CELL DISTRIBUTION WIDTH 13.7 % (11.7-14.4); WHITE BLOOD COUNT 6.94 x10e3/uL (4.8-10.8)
[2024-08-02] MEDS: SODIUM CHLORIDE 0.9% 1000ML 1,000 ML ONE (06:58)
[2024-08-02 07:03] LABS: ANION GAP 12.1 mmol/L (8-16); CREATININE, SERUM 1.55 mg/dL (0.72-1.25); POTASSIUM 4.1 mmol/L (3.5-5.1)
[2024-08-02] MEDS ORDERED: PROPOFOL IV EMULSION 10 MG/ML 20 ML VIAL ONE (09:11)
[2024-08-02] MEDS ORDERED: SEVOFLURANE INHAL SOLN 250 ML PEN BTL ONE (09:11)
[2024-08-02] MEDS ORDERED: ROCURONIUM BROMIDE 1 ML IV ONE (09:12)
[2024-08-02] MEDS ORDERED: ONDANSETRON HCL INJ 2MG/ML 2ML 2 MG/ML VIAL ONE (09:12)
[2024-08-02] MEDS ORDERED: DEXAMETHASONE SOD PHOS INJ 4 MG/ML SDV ONE (09:12)
[2024-08-02] MEDS ORDERED: LIDOCAINE HCL 2% LOCAL INJ 5 ML SDV VIAL INJ ONE (09:12)
[2024-08-02] MEDS ORDERED: SUCCINYLCHOLINE CHLORIDE 20 MG/ML 10ML VIAL ONE (09:12)
[2024-08-02] MEDS ORDERED: FENTANYL CITRATE/PF 100MCG/2 ML INJ ONE (09:13)
[2024-08-02] MEDS ORDERED: METOCLOPRAMIDE HCL 10 MG/2ML VIAL ONE (11:18)
[2024-08-02] MEDS ORDERED: ACETAMINOPHEN 1000 MG/100 ML 100 ML IV ONE (11:26)
[2024-08-02] MEDS ORDERED: EPHEDRINE SULFATE INJ 50 MG/ML VIAL ONE (11:41)
[2024-08-02] MEDS ORDERED: SUGAMMADEX SODIUM 200 MG/2 ML VIAL IV ONE (12:20)
[2024-08-02] MEDS ORDERED: ONDANSETRON HCL INJ 2MG/ML 2ML 2 MG/ML VIAL IV PRN (12:45)
[2024-08-02] MEDS ORDERED: DIPHENHYDRAMINE HCL 25 MG CAP PO PRN (12:45)
[2024-08-02] MEDS: FENTANYL CITRATE/PF 100MCG/2 ML INJ ONE (12:50)
[2024-08-02 13:20] LABS: BASOPHILS % 0.2 % (0.0-1.0); EOSINOPHILS # (AUTO) 0.1 (0.0-0.4); EOSINOPHILS % 0.9 % (0.0-6.0); HEMATOCRIT 32.4 % (38.2-49.6); HEMOGLOBIN 10.3 g/dL (14.0-18.0); LYMPHOCYTES # (AUTO) 1.7 (1.0-3.2); LYMPHOCYTES % 14.2 % (18.0-39.1); MEAN CORPUSCULAR HEMOGLOBIN 29.9 pg (28-32); MEAN CORPUSCULAR HGB CONC 31.8 g/dL (31-35); MEAN CORPUSCULAR VOLUME 94.2 fL (81-99); MONOCYTES # (AUTO) 0.4 (0.2-0.8); NEUTROPHILS # (AUTO) 9.9 (2.1-6.9); NEUTROPHILS % 81.3 % (38.7-80.0); PLATELET COUNT 137 x10e3/uL (140-360); RED BLOOD COUNT 3.44 x10e6/uL (4.3-5.7); RED CELL DISTRIBUTION WIDTH 13.7 % (11.7-14.4); WHITE BLOOD COUNT 12.15 x10e3/uL (4.8-10.8)
[2024-08-02 13:42] VITALS: BP 134/71; PULSE 90; RESP 18; TEMP 97.5; O2SAT 97
[2024-08-02 13:55] LABS: CREATININE, SERUM 1.02 mg/dL (0.72-1.25)
[2024-08-02 14:14] LABS: CALCIUM 6.8 mg/dL (8.4-10.2)
[2024-08-02] MEDS: SODIUM CHLORIDE 0.9% 1000ML 1,000 ML IV SCH (14:25)
[2024-08-02] MEDS: ACETAMINOPHEN/CODEINE 300MG - 30MG TAB PO PRN (14:26)
[2024-08-02] MEDS: GENTAMICIN 80MG/NS 100 ML 200 ML IV ONE (14:26)
[2024-08-02] MEDS: SENNA-S TABLET PO SCH (17:49)
[2024-08-02 18:01] VITALS: BP 134/71; PULSE 90; RESP 18; TEMP 97.5; O2SAT 97
[2024-08-02 18:40] VITALS: BP 134/71; PULSE 90; RESP 18; TEMP 97.5; O2SAT 97
[2024-08-02] MEDS: ACETAMINOPHEN 1000 MG/100 ML IV PRN (18:45)
[2024-08-02] MEDS: PHENAZOPYRIDINE HCL 100 MG TAB PO PRN (19:08)
[2024-08-02] MEDS: CALCIUM CARBONATE 500 MG CHEWABLE TABS PO SCH (19:40)
[2024-08-02 19:48] VITALS: BP 101/62; PULSE 71; PULSE 85; RESP 16; RESP 18; TEMP 97.9; O2SAT 96; O2SAT 98
[2024-08-02 21:28] VITALS: BP 101/62; PULSE 71; RESP 16; TEMP 97.9; O2SAT 96
[2024-08-02 23:35] VITALS: BP 119/72; PULSE 76; RESP 18; TEMP 98.4; O2SAT 99
[2024-08-03] VITALS (10 sets, daily range): BP systolic 120–142; BP diastolic 63–72; PULSE 69–78; RESP 17–20; TEMP 97.5–98.8; O2SAT 95–100
[2024-08-03 05:35] LABS: BASOPHILS % 0.1 % (0.0-1.0); EOSINOPHILS % 0.2 % (0.0-6.0); HEMATOCRIT 25.2 % (38.2-49.6); HEMOGLOBIN 8.1 g/dL (14.0-18.0); LYMPHOCYTES # (AUTO) 1.2 (1.0-3.2); LYMPHOCYTES % 12.1 % (18.0-39.1); MEAN CORPUSCULAR HEMOGLOBIN 30.1 pg (28-32); MEAN CORPUSCULAR HGB CONC 32.1 g/dL (31-35); MEAN CORPUSCULAR VOLUME 93.7 fL (81-99); MONOCYTES # (AUTO) 0.7 (0.2-0.8); NEUTROPHILS # (AUTO) 8.1 (2.1-6.9); NEUTROPHILS % 80.3 % (38.7-80.0); PLATELET COUNT 130 x10e3/uL (140-360); RED BLOOD COUNT 2.69 x10e6/uL (4.3-5.7); RED CELL DISTRIBUTION WIDTH 14.2 % (11.7-14.4); WHITE BLOOD COUNT 10.12 x10e3/uL (4.8-10.8)
[2024-08-03 06:09] LABS: ANION GAP 9.2 mmol/L (8-16); CALCIUM 7.3 mg/dL (8.4-10.2); CREATININE, SERUM 1.15 mg/dL (0.72-1.25); POTASSIUM 4.2 mmol/L (3.5-5.1)
[2024-08-03] MEDS ORDERED: ALBUTEROL/IPRATROPIUM 3 ML NEB NEB PRN (11:00)
[2024-08-03] MEDS ORDERED: METOPROLOL TARTRATE INJ 1 MG/ML VIAL IV PRN (11:00)
[2024-08-03] MEDS ORDERED: SIMETHICONE 80 MG CHEW PO PRN (11:00)
[2024-08-03] MEDS ORDERED: MELATONIN 3 MG TAB PO PRN (11:00)
[2024-08-03] MEDS: ACETAMINOPHEN 1000 MG/100 ML IV PRN (14:47)
[2024-08-03] MEDS: SIMVASTATIN 40 MG TAB PO SCH (20:58)
[2024-08-04] VITALS (8 sets, daily range): BP systolic 126–145; BP diastolic 66–78; PULSE 65–74; RESP 18–20; TEMP 97.5–98.2; O2SAT 94–100
[2024-08-04 05:17] LABS: BASOPHILS % 0.2 % (0.0-1.0); EOSINOPHILS # (AUTO) 0.3 (0.0-0.4); EOSINOPHILS % 4.3 % (0.0-6.0); HEMATOCRIT 24.4 % (38.2-49.6); LYMPHOCYTES # (AUTO) 1.7 (1.0-3.2); LYMPHOCYTES % 26.2 % (18.0-39.1); MEAN CORPUSCULAR HEMOGLOBIN 29.6 pg (28-32); MEAN CORPUSCULAR HGB CONC 31.6 g/dL (31-35); MEAN CORPUSCULAR VOLUME 93.8 fL (81-99); MONOCYTES # (AUTO) 0.5 (0.2-0.8); MONOCYTES % 7.6 % (4.4-11.3); NEUTROPHILS % 61.4 % (38.7-80.0); PLATELET COUNT 131 x10e3/uL (140-360); RED CELL DISTRIBUTION WIDTH 14.3 % (11.7-14.4); WHITE BLOOD COUNT 6.56 x10e3/uL (4.8-10.8)
[2024-08-04 05:19] LABS: HEMOGLOBIN 7.7 g/dL (14.0-18.0)
[2024-08-04 05:42] LABS: ANION GAP 10.4 mmol/L (8-16); CALCIUM 8.3 mg/dL (8.4-10.2); CREATININE, SERUM 1.22 mg/dL (0.72-1.25); POTASSIUM 4.4 mmol/L (3.5-5.1)
[2024-08-04 06:32] LABS: FERRITIN 160.01 ng/mL (21.81-274.66)
[2024-08-04] MEDS: PANTOPRAZOLE SOD 40 MG TABEC PO SCH (08:50)
[2024-08-04] MEDS: MONTELUKAST SODIUM 10 MG TAB PO SCH (08:52)
[2024-08-04] MEDS: ACETAMINOPHEN 325 MG TAB PO PRN (08:52)
[2024-08-05] VITALS (8 sets, daily range): BP systolic 127–158; BP diastolic 69–79; PULSE 64–76; RESP 18–20; TEMP 97.5–98.2; O2SAT 96–100
[2024-08-05 06:15] LABS: BASOPHILS % 0.3 % (0.0-1.0); EOSINOPHILS # (AUTO) 0.3 (0.0-0.4); EOSINOPHILS % 4.3 % (0.0-6.0); HEMATOCRIT 25.3 % (38.2-49.6); HEMOGLOBIN 7.9 g/dL (14.0-18.0); LYMPHOCYTES # (AUTO) 1.4 (1.0-3.2); LYMPHOCYTES % 21.9 % (18.0-39.1); MEAN CORPUSCULAR HEMOGLOBIN 29.5 pg (28-32); MEAN CORPUSCULAR HGB CONC 31.2 g/dL (31-35); MEAN CORPUSCULAR VOLUME 94.4 fL (81-99); MONOCYTES # (AUTO) 0.5 (0.2-0.8); MONOCYTES % 8.5 % (4.4-11.3); NEUTROPHILS % 64.2 % (38.7-80.0); PLATELET COUNT 147 x10e3/uL (140-360); RED BLOOD COUNT 2.68 x10e6/uL (4.3-5.7); RED CELL DISTRIBUTION WIDTH 13.9 % (11.7-14.4); WHITE BLOOD COUNT 6.25 x10e3/uL (4.8-10.8)
[2024-08-05 06:45] LABS: ANION GAP 11.3 mmol/L (8-16); CALCIUM 8.7 mg/dL (8.4-10.2); CREATININE, SERUM 1.27 mg/dL (0.72-1.25); POTASSIUM 4.3 mmol/L (3.5-5.1)
[2024-08-05] MEDS: LACTOBACILLUS ACIDOPHILUS CAPSULE PO SCH (09:38)
[2024-08-05] MEDS: MAGNESIUM HYDROXIDE 30 ML UDC PO ONE (09:38)
[2024-08-05] MEDS: MAGNESIUM HYDROXIDE 30 ML UDC PO PRN (15:27)
[2024-08-06] VITALS (8 sets, daily range): BP systolic 127–166; BP diastolic 75–82; PULSE 64–75; RESP 18–20; TEMP 97.6–98.5; O2SAT 93–100
[2024-08-06 05:38] LABS: BASOPHILS % 0.3 % (0.0-1.0); EOSINOPHILS # (AUTO) 0.2 (0.0-0.4); EOSINOPHILS % 3.1 % (0.0-6.0); HEMOGLOBIN 8.1 g/dL (14.0-18.0); LYMPHOCYTES # (AUTO) 1.8 (1.0-3.2); LYMPHOCYTES % 25.9 % (18.0-39.1); MEAN CORPUSCULAR HEMOGLOBIN 30.1 pg (28-32); MEAN CORPUSCULAR HGB CONC 32.4 g/dL (31-35); MEAN CORPUSCULAR VOLUME 92.9 fL (81-99); MONOCYTES # (AUTO) 0.5 (0.2-0.8); MONOCYTES % 7.9 % (4.4-11.3); NEUTROPHILS # (AUTO) 4.2 (2.1-6.9); NEUTROPHILS % 62.4 % (38.7-80.0); PLATELET COUNT 146 x10e3/uL (140-360); RED BLOOD COUNT 2.69 x10e6/uL (4.3-5.7); RED CELL DISTRIBUTION WIDTH 13.9 % (11.7-14.4)
[2024-08-06 06:03] LABS: CALCIUM 8.6 mg/dL (8.4-10.2); CREATININE, SERUM 1.3 mg/dL (0.72-1.25)
[2024-08-06] MEDS ORDERED: SENNA S TABLET1 EACH PO (08:43)
[2024-08-07 04:00] VITALS: BP 138/90; PULSE 70; RESP 18; TEMP 97.6; O2SAT 99
[2024-08-07 06:20] VITALS: PULSE 79; RESP 20; O2SAT 98
[2024-08-07] MEDS ORDERED: BISACODYL 10 MG SUPP PR PRN (08:00)
[2024-08-07] MEDS ORDERED: MAGNESIUM HYDROXIDE 30 ML UDC PO PRN (08:30)
[2024-08-07] MEDS ORDERED: DOCUSATE SODIUM 100 MG CAP PO SCH (09:00)
[2024-08-07] MEDS: BISACODYL 10 MG SUPP PR ONE (09:44)
[2024-08-07] MEDS: BISACODYL 5 MG TAB EC PO ONE (09:46)
[2024-08-07 09:50] VITALS: BP 145/81; PULSE 60; RESP 17; TEMP 97.5; O2SAT 98
[2024-08-07 10:06] VITALS: BP 145/81; PULSE 60; RESP 17; TEMP 97.5; O2SAT 100
[2024-08-07 13:00] VITALS: BP 142/79; PULSE 73; RESP 18; TEMP 98.4; O2SAT 100
[2024-08-07] MEDS: MAGNESIUM HYDROXIDE 30 ML UDC PO ONE (14:49)
[2024-08-07 16:00] VITALS: BP 149/86; PULSE 75; RESP 17; TEMP 97.9; O2SAT 98
[2024-08-07] MEDS ORDERED: MONTELUKAST SODIUM 10 MG TAB PO SCH (20:00)
== END 2024-08-07 18:25 | disposition home or self-care (01) | DRG 713 ==
LOC: OR 06:02 → PACU V 12:39 → MED/SURG2 13:25
PROVIDERS: ADMIT Urology; ATTEND Urology
PROC: 0VB08ZZ Excision of Prostate, Via Natural or Artificial Opening Endoscopic (ICD-10-PCS; principal; 2024-08-02 11:15)
PROC: BT141ZZ Fluoroscopy of Kidneys, Ureters and Bladder using Low Osmolar Contrast (ICD-10-PCS; 2024-08-02 11:15)
DX: N40.1 Benign prostatic hyperplasia with lower urinary tract symptoms (principal); D62 Acute posthemorrhagic anemia; N17.9 Acute kidney failure, unspecified; N13.8 Other obstructive and reflux uropathy; E86.0 Dehydration; I12.9 Hypertensive chronic kidney disease with stage 1 through stage 4 chronic kidney disease, or unspecified chronic kidney disease; N18.30 Chronic kidney disease, stage 3 unspecified; E78.5 Hyperlipidemia, unspecified; N41.9 Inflammatory disease of prostate, unspecified; I25.10 Atherosclerotic heart disease of native coronary artery without angina pectoris; R31.0 Gross hematuria; N32.81 Overactive bladder; K59.00 Constipation, unspecified; Z95.1 Presence of aortocoronary bypass graft; Z87.440 Personal history of urinary (tract) infections; Z90.5 Acquired absence of kidney; E66.9 Obesity, unspecified; Z68.28 Body mass index [BMI] 28.0-28.9, adult
CPT/HCPCS: 36415; 74420; 80048; 82607; 82728; 83540; 83735; 84466; 85025; 88305; 93005; 94799; C1758; J0330; J0690; J0696; J1100; J1580; J2003; J2405; J2470; J2765; J7030

== ENCOUNTER → 2024-10-25 | Outpatient (REF) | payer MEDICARE ==
[~2024-10-25] MED LIST changes: +SENNA S TABLET1 EACH PO
== END ==
LOC: US 16:36
PROVIDERS: ATTEND Urology
DX: C64.2 Malignant neoplasm of left kidney, except renal pelvis (principal); R31.0 Gross hematuria
CPT/HCPCS: 74018; 76770; 76857